=== PATIENT | male | born 1980 | race Caucasian/White ===

== ENCOUNTER 2021-02-09 17:38 | Emergency (ER) | payer OTHER ==
[~2021-02-09] VITALS: Ht 162.6 cm; Wt 117.9 kg
--- NOTE | 2021-02-09 17:38 | NUR ---
Pt was brought to ER by pt's via car, pt was brought directly to room 1a via gurney. Pt's stated she will park the car and come back to ER with further information.
--- NOTE | 2021-02-09 17:43 | NUR ---
Code Stroke activated by . Last well time unknown at this time as pt's has not returned to the ER.
--- NOTE | 2021-02-09 17:43 | NUR ---
PT IS IN ROOM #1A. DR PAN EVALUATED THE PT.
--- NOTE | 2021-02-09 17:44 | NUR ---
CODE STROKE WAS CALLED BY DR PAN. CODE STROKE POTOCOL STARTED .
--- NOTE | 2021-02-09 17:45 | NUR ---
Telestroke line not activated per 's instructions.
--- NOTE | 2021-02-09 17:47 | NUR ---
Pt brought to CT via g[place]rey by myself and physics technician with ACLS guidelines in place.
[2021-02-09 18:00] LABS: BASOPHILS # (AUTO) 0.1 K/uL (0.0-8.0); BASOPHILS % (AUTO) 0.5 % (0.0-2.0); EOSINOPHILS # (AUTO) 0.4 K/uL (0.0-0.7); EOSINOPHILS % (AUTO) 3.6 % (0.0-7.0); HEMATOCRIT 44.7 % (36.7-47.1); HEMOGLOBIN 14.8 g/dL (12.5-16.3); LYMPHOCYTES # (AUTO) 1.9 K/uL (20.0-40.0); LYMPHOCYTES % (AUTO) 17.5 % (20.5-51.5); MEAN CORPUSCULAR HEMOGLOBIN 27.9 uug (23.8-33.4); MEAN CORPUSCULAR HGB CONC 33 g/dL (32.5-36.3); MONOCYTES # (AUTO) 0.8 K/uL (2.0-10.0); MONOCYTES % (AUTO) 7.7 % (0.0-11.0); NEUTROPHILS # (AUTO) 7.6 K/uL (1.8-8.9); NEUTROPHILS % (AUTO) 70.7 % (38.5-71.5); PLATELET COUNT (AUTO) 268 K/uL (152-348); RED BLOOD CELL COUNT(AUTO) 5.32 MIL/uL (4.06-5.63); WHITE BLOOD COUNT (AUTO) 10.7 K/uL (3.6-10.2)
--- NOTE | 2021-02-09 18:00 | NUR ---
Pt back from CT, pt placed back in room 1a.
--- NOTE | 2021-02-09 18:01 | NUR ---
Per she spoke with the pt's via telephone and pt's reported the last well known time was approx 45mins prior to arrival to ER.
[2021-02-09 18:07] LABS: CREATININE 0.9 mg/dL (0.6-1.3); POTASSIUM 3.2 mmol/L (3.5-5.1)
--- NOTE | 2021-02-09 18:07 | NUR ---
Code Stroke canceled by .
[2021-02-09 18:11] LABS: ABG HCO3 28.4 mmol/L; ABG PCO2 41.7 mmHg (35.0-45.0); ABG PH 7.451 (7.350-7.450); ABG PO2 76.6 mmHg (75.0-100.0); ABG SITE RIGHT RADIAL; ABG TOTAL HEMOGLOBIN 15.3 G/dL (13.5-18.0); COHb 2.6 % (0.5-1.5); MetHb 0.2 % (0.0-1.5); O2Hb 93.4 % (94.0-97.0); VENT MODE Room Air
[2021-02-09] MEDS ORDERED: IV NORMAL SALINE 1000 ML BAG IV ONE (18:45)
[2021-02-09 19:04] LABS: ETHANOL < 3 MG/DL (0-0)
[2021-02-09 19:17] LABS: BILIRUBIN,DIRECT 0.1 mg/dL (0.0-0.2); BILIRUBIN,TOTAL 0.2 mg/dL (0.2-1.0)
--- NOTE | 2021-02-09 19:30 | NUR ---
Patient walking around room requesting to be D/C'ed. Dr Batista into re eval patient.
[2021-02-09 19:36] LABS: THYROID STIMULATING HORMONE 1.736 mIU/mL (0.358-3.740)
--- NOTE | 2021-02-09 20:30 | NUR ---
IV removed. Catheter intact and site benign. Pressure and 4x4 gauze applied to site. No bleeding noted.
--- NOTE | 2021-02-09 21:30 | NUR ---
Patient discharged to home in stable condition. Written and verbal after care instructions given. Patient verbalizes understanding of instructions. Stressed follow up or return to ER for worsening s/s.
--- NOTE | 2021-02-09 21:32 | NUR ---
d/c'ed with taking patient home.
[2021-02-10 04:47] VITALS: BP 145/88
== END 2021-02-09 21:30 | disposition home or self-care (01) ==
LOC: ER 17:38
DX: R40.4 Transient alteration of awareness (principal); T41.295A Adverse effect of other general anesthetics, initial encounter; Y92.89 Other specified places as the place of occurrence of the external cause; G47.30 Sleep apnea, unspecified; E11.9 Type 2 diabetes mellitus without complications; J98.11 Atelectasis
CPT/HCPCS: 36415; 36600; 70030-TC; 70450; 71045; 84443; 85025; 85730; 93005; A4663; G0480; J7030

== ENCOUNTER 2021-04-08 13:58 | Emergency (ER) | payer OTHER ==
[~2021-04-08] VITALS: Ht 167.6 cm; Wt 117.9 kg
[2021-04-08] MEDS ORDERED: NITROGLYCERIN 0.4 MG/TAB BOTTLE SL ONE ×2 (14:30→14:39)
[2021-04-08] MEDS ORDERED: ASPIRIN 325 MG TABLET PO ONE (14:30)
[2021-04-08 14:36] VITALS: BP 161/97
[2021-04-08] MEDS ORDERED: ASPIRIN 325 MG TABLET ONE (14:39)
--- NOTE | 2021-04-08 14:40 | NUR ---
2nd dose of Nitro 0.4 SL given for CP 5/10, HR 117, BP 157/85.
--- NOTE | 2021-04-08 14:45 | NUR ---
3rd dose of Nitro SL given, CP remaines 5/10, HR 109, and BP is 137/78.
[2021-04-08 14:59] LABS: HEMATOCRIT 42.2 % (36.7-47.1); MEAN CORPUSCULAR HEMOGLOBIN 27.7 uug (23.8-33.4); MEAN CORPUSCULAR VOLUME 84.1 fL (73.0-96.2); PLATELET COUNT (AUTO) 240 K/uL (152-348)
[2021-04-08 15:06] LABS: CREATININE 1.2 mg/dL (0.6-1.3); POTASSIUM 3.6 mmol/L (3.5-5.1)
[2021-04-08 15:21] LABS: BILIRUBIN,DIRECT 0.1 mg/dL (0.0-0.2); BILIRUBIN,TOTAL 0.4 mg/dL (0.2-1.0); TOTAL PROTEIN, SERUM 6.7 g/dL (6.4-8.2)
--- NOTE | 2021-04-08 16:24 | NUR ---
Pt accidently pulled HL out when attempted to use the bathroom.
--- NOTE | 2021-04-08 16:32 | NUR ---
Patient eloped from facility. ER physician notified.
== END 2021-04-08 16:55 | disposition left against medical advice (07) ==
LOC: ER 13:58
DX: R07.9 Chest pain, unspecified (principal); R94.31 Abnormal electrocardiogram [ECG] [EKG]; R00.0 Tachycardia, unspecified; R73.03 Prediabetes; G47.30 Sleep apnea, unspecified; Z86.79 Personal history of other diseases of the circulatory system
CPT/HCPCS: 36415; 70030-TC; 71045; 85025; 93005; A4663; J7030